=== PATIENT | female | born 1995 | race Two or more races ===

== ENCOUNTER 2016-12-14 17:30 | Emergency (ER) | payer MEDICAID, OTHER ==
[~2016-12-14] VITALS: Ht 162.6 cm; Wt 59.0 kg
[2016-12-14 21:48] VITALS: BP 118/78
[2016-12-14 23:19] LABS: Vaginal Trichomonas Present; Vaginal Yeast None Seen
[2016-12-14 23:20] LABS: Vaginal Bacteria Moderate; Vaginal Clue Cells None Seen; Vaginal Epithelial Cells Moderate; Vaginal RBC None Seen; Vaginal WBC Few
== END 2016-12-14 22:02 | disposition home or self-care (01) ==
LOC: ER 17:33
DX: F41.9 Anxiety disorder, unspecified (principal); F45.8 Other somatoform disorders; R07.9 Chest pain, unspecified
CPT/HCPCS: 71010; 81025; 87210; 93005